=== PATIENT | male | born 1950 | race Caucasian/White ===

== ENCOUNTER 2018-12-06 22:05 | Emergency (ER) | payer MEDICARE ==
[~2018-12-06] VITALS: Ht 182.9 cm; Wt 159.1 kg
[2018-12-06] MEDS ORDERED: LANTUS100 UNIT/M SC (22:24)
[2018-12-06] MEDS ORDERED: ELIQUIS5 MG PO (22:24)
[2018-12-06] MEDS ORDERED: DILTIAZEM HCL240 MG PO (22:24)
[2018-12-06 23:08] LABS: HEMATOCRIT 46.4 % (39.0-50.0); HEMOGLOBIN 15.1 g/dl (14.0-18.0); IMMATURE GRANULOCYTES 2.5 % (0.0-5.0); MEAN CELL VOLUME 89.1 fL CALC (80.0-100.0); MEAN CORPUSCULAR HGB CONC 32.5 g/L CALC (32.0-36.0); NEUT# 8.77 thou/uL (1.82-7.42); RED BLOOD COUNT 5.21 mill/uL (4.70-6.10); RED CELL DISTRI WIDTH 15.7 % (11.5-15.5)
[2018-12-06 23:20] LABS: ALBUMIN 3.6 g/dL (3.2-5.0); ALKALINE PHOSPHATASE 62 u/l (38-126); ANION GAP 14 (6-22 (CALC)); BILIRUBIN, TOTAL 0.7 mg/dL (0.0-1.4); BUN 40 mg/dL (8-23); BUN/CREATININE RATIO 42 (12-20 (CALC)); CARBON DIOXIDE 29 mmol/l (22-30); CHLORIDE 99 mmol/l (95-108); GFR > 60 ML/MIN (>=60 (CALC)); GFR FOR AFR.AMER. > 60 ML/MIN (>=60 (CALC)); POTASSIUM 4.4 mmol/l (3.5-5.1); SGOT/AST 16 u/l (19-48); SODIUM 137 mmol/l (137-146)
[2018-12-07 00:15] VITALS: BP 169/75
== END 2018-12-07 00:15 | disposition short-term general hospital (02) ==
LOC: ED 22:05
PROVIDERS: Emergency Medicine
DX: S02.32XA Fracture of orbital floor, left side, initial encounter for closed fracture (principal); S00.212A Abrasion of left eyelid and periocular area, initial encounter; R04.0 Epistaxis; S00.93XA Contusion of unspecified part of head, initial encounter; W01.198A Fall on same level from slipping, tripping and stumbling with subsequent striking against other object, initial encounter; W10.1XXA Fall (on)(from) sidewalk curb, initial encounter; Y93.01 Activity, walking, marching and hiking; Y92.414 Local residential or business street as the place of occurrence of the external cause; I48.91 Unspecified atrial fibrillation; I10 Essential (primary) hypertension

== ENCOUNTER 2023-10-03 13:31 | Inpatient (IN) | payer MEDICARE ==
[~2023-10-03] VITALS: Ht 182.9 cm; Wt 142.8 kg
[2023-10-03] VITALS (20 sets, daily range): BP systolic 72–118; BP diastolic 49–76
[~2023-10-03 13:31] MED LIST: DILTIAZEM HCL240 MG PO; ELIQUIS5 MG PO; LANTUS100 UNIT/M SC
[2023-10-03 14:09] LABS: BASO% 0.4 % (0-3); EOS% 2.1 % (0-8); HEMATOCRIT 55.9 % (39.0-50.0); HEMOGLOBIN 17.2 g/dl (14.0-18.0); IMMATURE GRANULOCYTES 1.1 % (0.0-5.0); LYMPH% 7.7 % (15-41); MEAN CELL VOLUME 95.6 fL CALC (80.0-100.0); MEAN CORPUSCULAR HGB 29.4 pG CALC (26.0-32.0); MEAN CORPUSCULAR HGB CONC 30.8 g/dL CAL (32.0-36.0); MONO% 10.6 % (2-13); NEUT# 8.75 thou/uL (1.82-7.42); NEUT% 78.1 % (42-76); RED BLOOD COUNT 5.85 mill/uL (4.70-6.10); RED CELL DISTRI WIDTH 17.3 % (11.5-15.5)
[2023-10-03 14:18] LABS: ALBUMIN 4.3 g/dL (3.2-5.0); BILIRUBIN, TOTAL 1.7 mg/dL (0.2-1.3); CREATININE 2.1 mg/dL (0.7-1.3); TOTAL PROTEIN 7.1 g/dL (6.3-8.2)
[2023-10-03 15:54] LABS: URINE BILIRUBIN - DIPSTICK Negative (NEGATIVE); URINE BLOOD DIPSTICK Negative (NEGATIVE); URINE GLUCOSE - DIPSTICK Negative (NEGATIVE); URINE KETONE Negative (NEGATIVE); URINE LEUK ESTERASE Negative (NEGATIVE); URINE NITRITE - DIPSTICK Negative (Negative); URINE PH 5.5 (4.5-8.0); URINE PROTEIN - DIPSTICK Trace mg/dL (NEG-TRACE); URINE SPECIFIC GRAVITY 1.015
[2023-10-03 16:03] LABS: URINE COLOR Yellow
[2023-10-03] MEDS ORDERED: METOLAZONE2.5 MG PO (16:15)
[2023-10-03] MEDS ORDERED: GABAPENTIN100 MG PO (16:15)
[2023-10-03] MEDS ORDERED: KLOR-CON M2020 MEQ PO (16:16)
[2023-10-03] MEDS ORDERED: OMEPRAZOLE DR40 MG (16:16)
[2023-10-03] MEDS ORDERED: METOPROLOL TART50 MG PO (16:17)
[2023-10-03] MEDS ORDERED: ATORVASTATIN CA40 MG PO (16:17)
[2023-10-03] MEDS ORDERED: ELIQUIS5 MG PO (16:18)
[2023-10-03] MEDS ORDERED: COLACE100 MG PO (16:18)
[2023-10-03] MEDS ORDERED: ASPIRIN 81 LOW81 MG (16:19)
[2023-10-03] MEDS ORDERED: PROCARDIA XL30 MG PO (16:21)
[2023-10-03] MEDS ORDERED: LEVEMIR100 UNIT (16:22)
[2023-10-03] MEDS ORDERED: SYNTHROID25 MCG PO (16:24)
[2023-10-03] MEDS ORDERED: BUMETANIDE1 MG PO (16:25)
[2023-10-03] MEDS ORDERED: SILDENAFIL20 MG (16:25)
[2023-10-03] MEDS ORDERED: MIDODRINE5 MG PO (16:26)
[2023-10-03] MEDS ORDERED: ALDACTONE25 MG PO (16:26)
[2023-10-04] VITALS (8 sets, daily range): BP systolic 106–119; BP diastolic 63–75
[2023-10-04 06:30] LABS: BASO% 0.5 % (0-3); EOS% 1.7 % (0-8); HEMATOCRIT 50.2 % (39.0-50.0); HEMOGLOBIN 15.9 g/dl (14.0-18.0); IMMATURE GRANULOCYTES 0.8 % (0.0-5.0); LYMPH% 9.9 % (15-41); MEAN CELL VOLUME 94.2 fL CALC (80.0-100.0); MEAN CORPUSCULAR HGB 29.8 pG CALC (26.0-32.0); MEAN CORPUSCULAR HGB CONC 31.7 g/dL CAL (32.0-36.0); MONO% 15.2 % (2-13); NEUT# 6.57 thou/uL (1.82-7.42); NEUT% 71.9 % (42-76); RED BLOOD COUNT 5.33 mill/uL (4.70-6.10); RED CELL DISTRI WIDTH 17.1 % (11.5-15.5)
[2023-10-04 06:35] LABS: ALBUMIN 3.8 g/dL (3.2-5.0); BILIRUBIN, TOTAL 1.4 mg/dL (0.2-1.3); CREATININE 1.9 mg/dL (0.7-1.3); POTASSIUM 3.9 mmol/l (3.5-5.1); TOTAL PROTEIN 6.6 g/dL (6.3-8.2)
[2023-10-04 06:41] LABS: MAGNESIUM 2.5 mg/dL (1.6-2.3)
[2023-10-05] VITALS (11 sets, daily range): BP systolic 102–131; BP diastolic 57–82
[2023-10-05 05:30] LABS: HEMATOCRIT 47.2 % (39.0-50.0); HEMOGLOBIN 15.3 g/dl (14.0-18.0); MEAN CELL VOLUME 93.5 fL CALC (80.0-100.0); MEAN CORPUSCULAR HGB 30.3 pG CALC (26.0-32.0); MEAN CORPUSCULAR HGB CONC 32.4 g/dL CAL (32.0-36.0); RED BLOOD COUNT 5.05 mill/uL (4.70-6.10); RED CELL DISTRI WIDTH 16.5 % (11.5-15.5)
[2023-10-05 05:42] LABS: ALBUMIN 3.5 g/dL (3.2-5.0); CHOLESTEROL HDL RATIO 5.5 (<4.4 (CALC)); CREATININE 1.7 mg/dL (0.7-1.3); MAGNESIUM 2.3 mg/dL (1.6-2.3); TOTAL PROTEIN 6.1 g/dL (6.3-8.2)
[2023-10-05 05:43] LABS: POTASSIUM 2.8 mmol/l (3.5-5.1)
[2023-10-05 12:41] LABS: BASO% 0.4 % (0-3); EOS% 2.4 % (0-8); HEMATOCRIT 48.1 % (39.0-50.0); HEMOGLOBIN 15.2 g/dl (14.0-18.0); IMMATURE GRANULOCYTES 0.8 % (0.0-5.0); LYMPH% 8.3 % (15-41); MEAN CELL VOLUME 93.2 fL CALC (80.0-100.0); MEAN CORPUSCULAR HGB 29.5 pG CALC (26.0-32.0); MEAN CORPUSCULAR HGB CONC 31.6 g/dL CAL (32.0-36.0); MONO% 13.2 % (2-13); NEUT# 5.65 thou/uL (1.82-7.42); NEUT% 74.9 % (42-76); RED BLOOD COUNT 5.16 mill/uL (4.70-6.10); RED CELL DISTRI WIDTH 16.8 % (11.5-15.5)
[2023-10-05 13:04] LABS: ACT PARTIAL THROMBO TIME 33.4 SECONDS (20.0-32.5); INTERNATIONAL NORMALIZED RATIO 1.3 RATIO (0.7-1.3); PROTHROMBIN TIME 12.7 SECONDS (9.0-12.5)
== END 2023-10-06 00:08 | disposition short-term general hospital (02) | DRG 871 ==
LOC: ED 13:31 → ED-I 15:01 → ED 15:41 → MS2 15:42 → ICU 10-05 16:15
PROVIDERS: Family Medicine; ADMIT Student in an Organized Health Care Education/Training Program; ATTEND Student in an Organized Health Care Education/Training Program
PROC: 5A09357 Assistance with Respiratory Ventilation, Less than 24 Consecutive Hours, Continuous Positive Airway Pressure (ICD-10-PCS; principal; 2023-10-03)
DX: A41.9 Sepsis, unspecified organism (principal); I21.4 Non-ST elevation (NSTEMI) myocardial infarction; J10.00 Influenza due to other identified influenza virus with unspecified type of pneumonia; J96.02 Acute respiratory failure with hypercapnia; J96.01 Acute respiratory failure with hypoxia; I13.0 Hypertensive heart and chronic kidney disease with heart failure and stage 1 through stage 4 chronic kidney disease, or unspecified chronic kidney disease; N17.9 Acute kidney failure, unspecified; I48.20 Chronic atrial fibrillation, unspecified; R65.20 Severe sepsis without septic shock; I50.9 Heart failure, unspecified; I25.10 Atherosclerotic heart disease of native coronary artery without angina pectoris; E11.22 Type 2 diabetes mellitus with diabetic chronic kidney disease; N18.9 Chronic kidney disease, unspecified; E87.5 Hyperkalemia; Z95.0 Presence of cardiac pacemaker; Z79.4 Long term (current) use of insulin; Z95.5 Presence of coronary angioplasty implant and graft; Z95.2 Presence of prosthetic heart valve; Z20.822 Contact with and (suspected) exposure to COVID-19; Z79.01 Long term (current) use of anticoagulants
CPT/HCPCS: J1644; J1650